=== PATIENT | male | born 1980 | race Hispanic/Latino ===

== ENCOUNTER 2018-04-19 15:45 | Emergency (ER) | payer OTHER ==
[2018-04-19] MEDS ORDERED: FLUORESCEIN SODIUM 1 STRIP STRIP ONE (16:01)
[2018-04-19] MEDS ORDERED: NA BORATE/BORIC AC/H2O/NACL 120 ML OPHTH IRRIG SOLN ONE (16:02)
[2018-04-19] MEDS ORDERED: ERYTHROMYCIN BASE 0.5% OPHTH OINT 1 GM TUBE ONE (16:12)
== END 2018-04-19 16:18 | disposition home or self-care (01) ==
LOC: EDH 15:45
DX: S05.01XA Injury of conjunctiva and corneal abrasion without foreign body, right eye, initial encounter (principal); X58.XXXA Exposure to other specified factors, initial encounter; Y93.89 Activity, other specified; Y92.89 Other specified places as the place of occurrence of the external cause; Y99.8 Other external cause status

== ENCOUNTER 2018-04-23 15:32 | Emergency (ER) | payer OTHER ==
[2018-04-23] MEDS ORDERED: CEFTRIAXONE SODIUM 500 MG VIAL ONE (15:52)
[2018-04-23] MEDS ORDERED: LIDOCAINE HCL-MPF 1% 2ML VIAL ONE (15:52)
== END 2018-04-23 16:05 | disposition home or self-care (01) ==
LOC: EDH 15:32
DX: Z20.811 Contact with and (suspected) exposure to meningococcus (principal)
CPT/HCPCS: 96372; 99283; J0696; J3490

== ENCOUNTER 2020-01-26 16:36 | Emergency (ER) | payer OTHER ==
[2020-01-26] MEDS ORDERED: CEPHALEXIN 500 MG CAPSULE ONE (16:53)
[2020-01-26] MEDS ORDERED: PREDNISONE 20 MG TABLET ONE (16:53)
[2020-01-26] MEDS ORDERED: FAMOTIDINE 20MG TAB 20 MG TAB ONE (16:54)
== END 2020-01-26 17:16 | disposition home or self-care (01) ==
LOC: EDH 16:36
DX: T78.3XXA Angioneurotic edema, initial encounter (principal); L03.211 Cellulitis of face

== ENCOUNTER 2020-07-16 18:49 | Emergency (ER) | payer OTHER | END 2020-07-16 20:05 | disposition home or self-care (01) | LOC: EDH 18:49 | DX: M62.838 Other muscle spasm (principal); M54.2 Cervicalgia; V49.09XA Driver injured in collision with other motor vehicles in nontraffic accident, initial encounter; Y93.89 Activity, other specified; Y92.89 Other specified places as the place of occurrence of the external cause; Y99.8 Other external cause status | CPT/HCPCS: 72040 ==

== ENCOUNTER 2020-12-01 06:01 | Emergency (ER) | payer OTHER ==
[~2020-12-01] VITALS: Ht 175.3 cm; Wt 88.5 kg
[2020-12-01 06:09] VITALS: BP 132/84
== END 2020-12-01 07:29 | disposition home or self-care (01) ==
LOC: EDH 06:01
DX: B34.9 Viral infection, unspecified (principal); Z20.822 Contact with and (suspected) exposure to COVID-19
CPT/HCPCS: 87635; 87804 ×2; 87880; 99283; C9803

== ENCOUNTER 2022-11-06 12:10 | Emergency (ER) | payer OTHER ==
[~2022-11-06] VITALS: Ht 175.3 cm; Wt 90.7 kg
[~2022-11-06 12:10] MED LIST: ACET-66 PO; AMOX-429 PO; KETO10TA2 PO
[2022-11-06] MEDS ORDERED: IBUPROFEN 600 MG TABLET PO ONE (13:00)
[2022-11-06] MEDS ORDERED: IBUP-2070 PO (13:09)
[2022-11-06 13:39] VITALS: BP 132/78; PULSE 78; RESP 20; O2SAT 98
== END 2022-11-06 13:40 | disposition home or self-care (01) ==
LOC: EDH 12:10
DX: S62.632A Displaced fracture of distal phalanx of right middle finger, initial encounter for closed fracture (principal); Z79.899 Other long term (current) drug therapy; Z98.890 Other specified postprocedural states; X58.XXXA Exposure to other specified factors, initial encounter; Y93.39 Activity, other involving climbing, rappelling and jumping off; Y92.89 Other specified places as the place of occurrence of the external cause; Y99.8 Other external cause status
CPT/HCPCS: 29130; 73130

== ENCOUNTER 2023-01-04 14:57 | Emergency (ER) | payer OTHER ==
[~2023-01-04] VITALS: Ht 172.7 cm; Wt 93.0 kg
[~2023-01-04 14:57] MED LIST changes: +IBUP-2070 PO
[2023-01-04 15:14] VITALS: BP 139/101; PULSE 106; RESP 16
[2023-01-04 15:17] LABS: BASOPHILS # (AUTO) 0.06 K/uL (0.00-0.20); BASOPHILS % (AUTO) 0.3 % (0.0-5.0); EOSINOPHILS # (AUTO) 0.02 K/uL (0.00-0.70); EOSINOPHILS % (AUTO) 0.1 % (0.0-8.0); HEMATOCRIT 51.4 % (42-54); IMMATURE GRANULOCYTE ABSOLUTE 0.09 K/uL (0-1); LYMPHOCYTES # (AUTO) 0.3 K/uL (1.0-4.8); LYMPHOCYTES % (AUTO) 1.9 % (21.0-51.0); MEAN CORPUSCULAR HEMOGLOBIN 32.7 pg (27.0-33.0); MEAN CORPUSCULAR HGB CONC 35.8 g/dL (32.0-36.0); MEAN CORPUSCULAR VOLUME 91.5 fL (79-99); MONOCYTES # (AUTO) 0.6 K/uL (0.1-1.0); MONOCYTES % (AUTO) 3.6 % (3.0-13.0); NEUTROPHILS # (AUTO) 16.4 K/uL (1.8-7.7); NEUTROPHILS % (AUTO) 93.6 % (40.0-77.0); PLATELET COUNT (AUTO) 327 K/uL (130-400); RED BLOOD CELL COUNT(AUTO) 5.62 MIL/uL (4.50-6.20); RED CELL DISTRIBUTION WIDTH 11.9 % (11.0-15.5); WHITE BLOOD COUNT (AUTO) 17.5 K/uL (4.8-10.8)
[2023-01-04 15:28] LABS: POTASSIUM 3.7 mmol/L (3.5-5.1)
[2023-01-04 15:33] LABS: ALBUMIN 4.1 g/dL (3.5-5.0); BILIRUBIN,TOTAL 0.7 mg/dL (0.2-1.0); TOTAL PROTEIN, SERUM 8.4 g/dL (6.0-8.3)
[2023-01-04] MEDS ORDERED: 0.9%NACL 1000ML 1,000 ML IV SCH (16:00)
[2023-01-04] MEDS ORDERED: ONDANSETRON 4MG INJ IVP ONE (16:30)
[2023-01-04 17:29] LABS: APPEARANCE,URINE CLEAR (CLEAR); BILIRUBIN,URINE NEGATIVE (NEGATIVE); COLOR,URINE YELLOW (YELLOW); GLUCOSE, URINE (UA) NEGATIVE (NEGATIVE); KETONES,URINE NEGATIVE (NEGATIVE); LEUKOCYTE ESTERASE ,URINE NEGATIVE Leu/uL (NEGATIVE); NITRATE,URINE NEGATIVE (NEGATIVE); OCCULT BLOOD,URINE NEGATIVE (NEGATIVE); PH,URINE 5.5 (5.0-8.0); PROTEIN,URINE NEGATIVE (NEGATIVE); UROBILINOGEN,URINE 0.2 mg/dL (0.2-1.0)
[2023-01-04 17:30] LABS: ADD UA MICROSCOPIC YES; MUCUS,URINE FEW LPF (None Seen); RBC,URINE 0-1 /HPF (0-1); SQUAMOUS EPITHELIAL CELL,UR RARE /HPF (0-2); WBC,URINE 0-1 /HPF (0-1)
[2023-01-04] MEDS ORDERED: METOCLOPRAMIDE 10 MG/2 ML VIAL IVP ONE (17:30)
[2023-01-04] MEDS ORDERED: HYOSCYAMINE SULFATE 0.125 MG TAB.SUBL SL ONE (17:30)
[2023-01-04 17:32] LABS: BACTERIA,URINE RARE /HPF (None Seen); YEAST,URINE BUDDING RARE /HPF (None Seen)
[2023-01-04 17:43] LABS: SARS-CoV-2, RNA, NAAT NEGATIVE SARS CoV-2 (NEGATIVE)
[2023-01-04 17:44] LABS: INFLUENZA TYPE A Negative For Type A (NEGATIVE); INFLUENZA TYPE B Negative For Type B (NEGATIVE)
[2023-01-04] MEDS ORDERED: HYOS0.124 SL (18:05)
[2023-01-04] MEDS ORDERED: ONDA4TAB10 PO (18:05)
== END 2023-01-04 18:15 | disposition home or self-care (01) ==
LOC: EDH 14:57
DX: K52.9 Noninfective gastroenteritis and colitis, unspecified (principal); Z20.822 Contact with and (suspected) exposure to COVID-19; Z79.899 Other long term (current) drug therapy; Z98.890 Other specified postprocedural states
CPT/HCPCS: 99284; 96374; 87635; 96361; 96375; 80053; 83690; 85025; 87804 ×2; 81001; 36415; C9803; J7030; J2405; J2765

== ENCOUNTER 2023-11-14 10:35 | Emergency (ER) | payer OTHER ==
[~2023-11-14] VITALS: Ht 175.3 cm; Wt 90.7 kg
[~2023-11-14 10:35] MED LIST changes: +HYOS0.124 SL; +ONDA-243 PO
[2023-11-14 10:58] LABS: RAPID GROUP A STREP negative (NEGATIVE)
[2023-11-14 11:08] LABS: COVID19 (SARS ANTIGEN RAPID) PRESUMPTIVE NEGATIVE (NEGATIVE); INFLUENZA TYPE A Negative For Type A (NEGATIVE); INFLUENZA TYPE B Negative For Type B (NEGATIVE)
[2023-11-14 11:31] VITALS: BP 123/78; PULSE 78; RESP 18; TEMP 98.2; O2SAT 98
== END 2023-11-14 11:33 | disposition home or self-care (01) ==
LOC: EDH 10:35
DX: J02.9 Acute pharyngitis, unspecified (principal); Z20.822 Contact with and (suspected) exposure to COVID-19; R05.9 Cough, unspecified; R09.81 Nasal congestion; Z79.899 Other long term (current) drug therapy; Z79.2 Long term (current) use of antibiotics; Z98.890 Other specified postprocedural states
CPT/HCPCS: 87426; 87804; 87880

== ENCOUNTER 2024-06-12 10:37 | Emergency (ER) | payer OTHER ==
[~2024-06-12] VITALS: Ht 175.3 cm; Wt 91.6 kg
[2024-06-12 10:39] VITALS: BP 128/81; PULSE 86; RESP 16; TEMP 98
[2024-06-12] MEDS: ketOROlac 30MG VIAL (30MG/ML) IM ONE (11:21)
--- NOTE | 2024-06-12 11:38 | HMCIMG ---
Exam Type: MANDIBLE COMP 4+VWS Clinical Information: right mandible pain Comparison: None Findings: The bone examination is unremarkable. No fractures or dislocations are seen. No radiopaque foreign bodies are noted. Soft tissues are preserved. IMPRESSION: Normal examination.
[2024-06-12] MEDS ORDERED: NAPR-1192 PO (11:39)
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
== END 2024-06-12 11:57 | disposition home or self-care (01) ==
LOC: EDH 10:37
DX: S00.83XA Contusion of other part of head, initial encounter (principal); W21.03XA Struck by baseball, initial encounter; Y93.89 Activity, other specified; Y92.89 Other specified places as the place of occurrence of the external cause; Y99.8 Other external cause status
CPT/HCPCS: 70110; 96372; 99283; J1885